=== PATIENT | female | born 1995 | race Hispanic/Latino ===

== ENCOUNTER 2017-09-03 16:52 | Emergency (ER) | payer SELFPAY ==
[2017-09-03 17:32] LABS: APPEARANCE,URINE Clear (CLEAR); BILIRUBIN,URINE Negative (NEGATIVE); COLOR,URINE Yellow (YELLOW); GLUCOSE, URINE (UA) Negative (NEGATIVE); KETONES,URINE Trace mg/dL (NEGATIVE); LEUKOCYTE ESTERASE ,URINE Trace (NEGATIVE); NITRATE,URINE Negative (NEGATIVE); OCCULT BLOOD,URINE Negative (NEGATIVE); PROTEIN,URINE POS 1+ (NEGATIVE)
[2017-09-03 17:37] LABS: RAPID GROUP A STREP NEGATIVE (NEGATIVE)
[2017-09-03 17:48] LABS: BACTERIA,URINE Few /HPF (None Seen); MUCUS,URINE Few LPF (None Seen); RBC,URINE 0-1 /HPF (0-1); SQUAMOUS EPITHELIAL CELL,UR Few /LPF (0-2)
[2017-09-03 17:56] LABS: HCG,QUAL RESULT NEGATIVE (NEGATIVE)
== END 2017-09-03 18:08 | disposition home or self-care (01) ==
LOC: EDH 16:52
DX: N39.0 Urinary tract infection, site not specified (principal); R50.81 Fever presenting with conditions classified elsewhere; J45.909 Unspecified asthma, uncomplicated; R51 Headache
CPT/HCPCS: 81001; 81025; 87804; 87880

== ENCOUNTER 2017-09-28 19:25 | Emergency (ER) | payer SELFPAY ==
[2017-09-28 20:03] LABS: APPEARANCE,URINE TURBID (CLEAR); BILIRUBIN,URINE NEGATIVE (NEGATIVE); COLOR,URINE YELLOW (YELLOW); GLUCOSE, URINE (UA) NEGATIVE (NEGATIVE); KETONES,URINE NEGATIVE (NEGATIVE); LEUKOCYTE ESTERASE ,URINE NEGATIVE (NEGATIVE); NITRATE,URINE NEGATIVE (NEGATIVE); OCCULT BLOOD,URINE NEGATIVE (NEGATIVE); PH,URINE 7.5 (5.0-8.0); PROTEIN,URINE 30 (NEGATIVE)
[2017-09-28 20:20] LABS: AMORPHOUS SEDIMENT,UR Many /LPF (None Seen); BACTERIA,URINE Few /HPF (None Seen); RBC,URINE None Seen /HPF (0-1); WBC,URINE None Seen /HPF (0-1)
== END 2017-09-28 20:36 | disposition home or self-care (01) ==
LOC: EDH 19:25
DX: J02.0 Streptococcal pharyngitis (principal); J45.909 Unspecified asthma, uncomplicated; Z79.899 Other long term (current) drug therapy
CPT/HCPCS: 81001; 81025; 87880

== ENCOUNTER 2018-07-30 23:15 | Emergency (ER) | payer OTHER ==
[2018-07-31] MEDS ORDERED: ALBUTEROL SULFATE 0.083% 2.5 MG/3 ML INH IH ONE (00:26)
[2018-07-31] MEDS ORDERED: DEXAMETHASONE SOD PHOSPHATE 10MG/ML 1ML VIAL ONE (00:43)
[2018-07-31] MEDS ORDERED: BENZONATATE 100 MG CAPSULE PO ONE (00:44)
[2018-07-31] MEDS ORDERED: GUAIFENESIN-CODEINE 5 ML SYRUP ONE (00:44)
== END 2018-07-31 01:45 | disposition home or self-care (01) ==
LOC: EDH 23:15
DX: J20.9 Acute bronchitis, unspecified (principal); J45.909 Unspecified asthma, uncomplicated; M41.9 Scoliosis, unspecified; Z91.018 Allergy to other foods
CPT/HCPCS: 94640; 96372; 99283; J1100

== ENCOUNTER 2019-05-31 13:18 | Emergency (ER) | payer SELFPAY | END 2019-05-31 14:28 | disposition home or self-care (01) | LOC: EDH 13:18 | DX: R10.84 Generalized abdominal pain (principal); J45.909 Unspecified asthma, uncomplicated; Z91.018 Allergy to other foods | CPT/HCPCS: 99282 ==

== ENCOUNTER 2021-08-22 21:25 | Emergency (ER) | payer SELFPAY ==
[~2021-08-22] VITALS: Ht 157.5 cm; Wt 74.8 kg
[2021-08-22] MEDS ORDERED: BENZONATATE 100 MG CAPSULE PO SCH (23:30)
[2021-08-23] MEDS ORDERED: BENZ-39 PO (00:19)
[2021-08-23] MEDS ORDERED: CETI10TA57 PO (00:19)
[2021-08-23 00:52] VITALS: BP 136/74
[2021-08-23] MEDS ORDERED: CETIRIZINE HCL 5 MG TABLET PO SCH (09:00)
== END 2021-08-23 00:54 | disposition home or self-care (01) ==
LOC: EDH 21:25
DX: J06.9 Acute upper respiratory infection, unspecified (principal); J45.909 Unspecified asthma, uncomplicated; M41.9 Scoliosis, unspecified
CPT/HCPCS: 87880

== ENCOUNTER 2021-09-05 22:15 | Emergency (ER) | payer OTHER ==
[~2021-09-05] VITALS: Ht 154.9 cm; Wt 70.3 kg
[~2021-09-05 22:15] MED LIST: BENZ-39 PO; CETI10TA57 PO
[2021-09-05 22:17] VITALS: BP 130/80
[2021-09-05] MEDS ORDERED: IBUP-2070 PO (23:53)
[2021-09-06] MEDS ORDERED: IBUPROFEN 600 MG TABLET PO ONE
== END 2021-09-06 00:09 | disposition home or self-care (01) ==
LOC: EDH 22:15
DX: M79.632 Pain in left forearm (principal); J45.909 Unspecified asthma, uncomplicated; Z79.899 Other long term (current) drug therapy; W18.39XA Other fall on same level, initial encounter; Y93.89 Activity, other specified; Y92.89 Other specified places as the place of occurrence of the external cause; Y99.8 Other external cause status
CPT/HCPCS: 73090

== ENCOUNTER 2023-03-01 15:47 | Emergency (ER) | payer OTHER ==
[~2023-03-01] VITALS: Ht 154.9 cm; Wt 81.6 kg
[~2023-03-01 15:47] MED LIST changes: +IBUP-2070 PO
[2023-03-01 20:36] LABS: BASOPHILS # (AUTO) 0.03 K/uL (0.00-0.20); BASOPHILS % (AUTO) 0.4 % (0.0-5.0); EOSINOPHILS # (AUTO) 0.02 K/uL (0.00-0.70); EOSINOPHILS % (AUTO) 0.2 % (0.0-8.0); HEMATOCRIT 38.6 % (36-48); IMMATURE GRANULOCYTE ABSOLUTE 0.03 K/uL (0-1); LYMPHOCYTES # (AUTO) 2.6 K/uL (1.0-4.8); LYMPHOCYTES % (AUTO) 30.7 % (21.0-51.0); MEAN CORPUSCULAR HEMOGLOBIN 30.2 pg (27.0-33.0); MEAN CORPUSCULAR HGB CONC 33.2 g/dL (32.0-36.0); MONOCYTES # (AUTO) 0.4 K/uL (0.1-1.0); MONOCYTES % (AUTO) 4.9 % (3.0-13.0); NEUTROPHILS # (AUTO) 5.4 K/uL (1.8-7.7); NEUTROPHILS % (AUTO) 63.4 % (40.0-77.0); PLATELET COUNT (AUTO) 333 K/uL (130-400); RED BLOOD CELL COUNT(AUTO) 4.24 MIL/uL (4.00-5.50); RED CELL DISTRIBUTION WIDTH 12.5 % (11.0-15.5); WHITE BLOOD COUNT (AUTO) 8.4 K/uL (4.8-10.8)
[2023-03-01 20:40] LABS: APPEARANCE,URINE CLOUDY (CLEAR); BILIRUBIN,URINE NEGATIVE (NEGATIVE); COLOR,URINE YELLOW (YELLOW); GLUCOSE, URINE (UA) NEGATIVE (NEGATIVE); KETONES,URINE 60 mg/dL (NEGATIVE); LEUKOCYTE ESTERASE ,URINE 500 Leu/uL (NEGATIVE); NITRATE,URINE 2+ (NEGATIVE); OCCULT BLOOD,URINE NEGATIVE (NEGATIVE); PROTEIN,URINE 20 mg/dL (NEGATIVE); UROBILINOGEN,URINE 0.2 mg/dL (0.2-1.0)
[2023-03-01 20:47] LABS: ADD UA MICROSCOPIC YES; CREATININE 0.7 mg/dL (0.5-1.5); POTASSIUM 3.3 mmol/L (3.5-5.1)
[2023-03-01 20:52] LABS: BILIRUBIN,TOTAL 0.5 mg/dL (0.2-1.0); TOTAL PROTEIN, SERUM 7.9 g/dL (6.0-8.3)
[2023-03-01 20:53] LABS: BACTERIA,URINE MOD /HPF (None Seen); MUCUS,URINE MANY LPF (None Seen); RBC,URINE 0-1 /HPF (0-1); SQUAMOUS EPITHELIAL CELL,UR FEW /HPF (0-2); WBC,URINE TNTC /HPF (0-1)
[2023-03-01] MEDS ORDERED: CEFTRIAXONE 1G VIAL IVPB ONE (21:00)
[2023-03-01 23:08] VITALS: BP 131/62; PULSE 74; RESP 12; O2SAT 98
[2023-03-01] MEDS ORDERED: CEFU500T67 PO (23:08)
[2023-03-01] MEDS ORDERED: IBUP-2077 PO (23:08)
[2023-03-02] MEDS ORDERED: KCL 20 MEQ ERTAB PO SCH (09:00)
== END 2023-03-01 23:28 | disposition home or self-care (01) ==
LOC: EDH 15:47
DX: S62.395A Other fracture of fourth metacarpal bone, left hand, initial encounter for closed fracture (principal); S16.1XXA Strain of muscle, fascia and tendon at neck level, initial encounter; N39.0 Urinary tract infection, site not specified; E87.6 Hypokalemia; F41.9 Anxiety disorder, unspecified; Z79.899 Other long term (current) drug therapy; Z98.890 Other specified postprocedural states; X58.XXXA Exposure to other specified factors, initial encounter; Y93.89 Activity, other specified; Y92.89 Other specified places as the place of occurrence of the external cause; Y99.8 Other external cause status
CPT/HCPCS: 99285; 70450; 96365; 80053; 85025; 87077; 87088; 87186; 81001; 81025; 36415; 73130; 72100; 72125; 29125; 93005; J0696